=== PATIENT | male | born 1965 | race Caucasian/White ===

== ENCOUNTER → 2017-08-16 | Outpatient (CLI) | payer OTHER | END | disposition home or self-care (01) | LOC: PCVCCLINIC 14:37 | DX: I25.10 Atherosclerotic heart disease of native coronary artery without angina pectoris (principal); I25.5 Ischemic cardiomyopathy; I10 Essential (primary) hypertension; E78.5 Hyperlipidemia, unspecified; F17.201 Nicotine dependence, unspecified, in remission; Z79.82 Long term (current) use of aspirin | CPT/HCPCS: 93005; G0463 ==